=== PATIENT | female | born 1955 | race Caucasian/White ===

== ENCOUNTER 2019-03-21 07:09 | Day surgery (SDC) | payer OTHER ==
[~2019-03-21] VITALS: Ht 157.5 cm; Wt 54.4 kg
[2019-03-21 07:58] VITALS: BP 126/70
[2019-03-21 08:31] LABS: CARBON DIOXIDE 26.3 mmol/L (21-32); CHLORIDE SERUM 107 mmol/L (98-107); CREATININE SERUM 0.7 mg/dL (0.6-1.0); GFR1 > 60 mL/min; GLUCOSE SERUM 98 mg/dL (74-106); SODIUM SERUM 142 mmol/L (136-145)
[2019-03-21 08:35] LABS: ALBUMIN 3.6 g/dL (3.4-5.0); ALKALINE PHOSPHATASE 90 U/L (46-116); ALT/SGPT 27 U/L (14-59); AST/SGOT 36 U/L (15-37); BILIRUBIN TOTAL 0.4 mg/dL (0.20-1.00); TOTAL PROTEIN, SERUM 7.7 g/dL (6.4-8.2)
[2019-03-21 09:01] LABS: BASOPHIL % 0.1 % (0-2); PLATELET COUNT 286 x10^3mcL (130-400); RED CELL DISTRIBUTION WIDTH 11.8 % (11.5-14.5)
[2019-03-21 10:00] VITALS: BP 126/70
[2019-03-21 10:15] VITALS: BP 126/70
[2019-03-21 10:19] VITALS: BP 126/70
[2019-03-21 17:32] VITALS: BP 141/80
== END 2019-03-21 17:20 | disposition home or self-care (01) ==
LOC: DS 07:09 → OR 11:30 → DS 12:00 → OR 12:00 → DS 17:20
PROVIDERS: Surgery
DX: C50.612 Malignant neoplasm of axillary tail of left female breast (principal); C50.412 Malignant neoplasm of upper-outer quadrant of left female breast; C77.3 Secondary and unspecified malignant neoplasm of axilla and upper limb lymph nodes; K21.9 Gastro-esophageal reflux disease without esophagitis; E78.5 Hyperlipidemia, unspecified; Z79.899 Other long term (current) drug therapy; Z87.59 Personal history of other complications of pregnancy, childbirth and the puerperium; Z98.890 Other specified postprocedural states
CPT/HCPCS: 88329; 88361; J0690; J1170; J2175; J2250; J2405; J2704; J3010; J3490; J7120; Q9968

== ENCOUNTER 2019-04-18 09:05 | Day surgery (SDC) | payer OTHER ==
[~2019-04-18] VITALS: Ht 157.5 cm; Wt 54.4 kg
[2019-04-18 09:48] VITALS: BP 133/73
[2019-04-18 16:30] VITALS: BP 130/68
== END 2019-04-18 16:00 | disposition home or self-care (01) ==
LOC: DS 09:05 → EDSTATUS 11:00 → DS 11:00 → OR 11:00 → DS 16:00
DX: D36.0 Benign neoplasm of lymph nodes (principal); C50.912 Malignant neoplasm of unspecified site of left female breast; Z79.899 Other long term (current) drug therapy; Z79.2 Long term (current) use of antibiotics; Z87.59 Personal history of other complications of pregnancy, childbirth and the puerperium; Z98.890 Other specified postprocedural states
CPT/HCPCS: J0690; J1170; J2250; J2270; J2405; J2704; J3010; J3490; J7120; Q9968